=== PATIENT | male | born 1980 ===

== ENCOUNTER → 2017-02-15 | Day surgery (SDC) | payer OTHER ==
[~2017-02-15] VITALS: Ht 175.3 cm; Wt 104.3 kg
[~2017-02-15] MED LIST: GABAPENTIN600 MG ORAL; LR 1000ml 1,000 ML IVLG SCH; LR 1000ml ONE; NORCO 10-325 T1 EACH ORAL; Propofol 10mg/ml 20ml IV ONE
--- NOTE | 2017-02-15 08:51 | Short Stay Surgery H&P ---
History of Present Illness History of Present Illness Chief Complaint Abdominal pains and GERDS, R/O Peptic ulcer. HPI Landry Ortiz is a 36 year old male who was admitted on for Abdominal Pain/GERDs. Patient History Allergies: Coded Allergies: No Known Allergies (Unverified , 02/15/17) PAST MEDICAL HISTORY: Past Surgeries: Social History: Review of Systems Cardiovascular: Reports: no symptoms Respiratory: Reports: no symptoms Skeletal: Reports: no symptoms Gastrointestinal: Reports: gastro esophageal reflux disease Genitourinary: Reports: no symptoms Neurologic: Reports: no symptoms Endocrine: Reports: no symptoms Hematologic: Reports: no symptoms Physical Exam Skin: normal HENT: normal Heart: normal Lungs: normal Abdomen: abnormal Extremities: normal Genitourinary: normal Plan Plan of Care Upper GI endoscopy with biopsy. Preop Interventions None. Summary of Findings See the reports. Final Diagnosis: Attestation Are the patient's medical conditions optimized for surgery? Attestation Response: yes MARYANN SERRANO Feb 15, 2017 08:51
--- NOTE | 2017-02-15 08:52 | Pre-Procedure Note/Attestation ---
Pre-Procedure Note/Attestation Complete Prior to Procedure Planned Procedure: left Procedure Narrative: The endoscopic examination of the upper and the lower GI tract with biopsy. Indications for Procedure Pre-Operative Diagnosis: R/O Gastritis/ulcers. Attestation I attest that I discussed the nature of the procedure; its benefits; risks and complications; and alternatives (and the risks and benefits of such alternatives ), prior to the procedure, with the patient (or the patient's legal mill representative). I attest that, if there was a reasonable possibility of needing a blood transfusion, the patient (or the patient's legal mill representative) was given the [place] Department [employer] standardized written summary, pursuant to the Landry Johana Blood Safety Act ([place] Health and Safety Code # 1645, as amended). I attest that I re-evaluated the patient just prior to the surgery and that there has been no change in the patient's H&P, except as documented below: ZACHSAID Feb 15, 2017 08:52
[2017-02-15 08:56] VITALS: BP 114/72
--- NOTE | 2017-02-15 09:09 | Endoscopy Procedure Note ---
Endoscopy Procedure Note Procedures Performed: EGD - Small sliding Hiatal Hernia. Mild duodenitis, biopsied. Mild edema of pyloric channel (12 oc;ock), biopsied . Biopsy done per random from gsatric body. Specimen: yes Pt Tolerated Procedure Well: Yes Estimated Blood Loss: none Anesthesiologist: Dr. Perkins Anesthesia: moderate sedation Medication Given: see anesthesia record Implant(s) used?: No 50 yrs or older w/o bx or poly: Not Applicable 10yrs. F/U not recommended: Not Applicable If not recommended, why?: Med reason:<3 yrs.: System Reason:<3 yrs.: MARYANN SERRANO Feb 15, 2017 09:09
--- NOTE | 2017-02-15 09:10 | Anethesia Preoperative Eval ---
Anesthesia Pre-op PMH/ROS General Date of Evaluation: Feb 15, 2017 Time of Evaluation: 08:57 Anesthesiologist: mira ASA Score: ASA 2 Mallampati Score Class I : Soft palate, uvula, fauces, pillars visible Class II: Soft palate, uvula, fauces visible Class III: Soft palate, base of uvula visible Class IV: Only hard plate visible Mallampati Classification: Class II Surgeon: adarsh Diagnosis: GERD abdominal pain Surgical Procedure: egd Anesthesia History: none Allergies: Coded Allergies: No Known Allergies (Unverified , 02/15/17) Past Medical History Gastrointestinal/Genitourinary: Reports: GERD Neurologic/Psychiatric: Reports: other - migraine Musculoskeletal/Integumentary: Reports: DDD - lumbar Anesthesia Pre-op Phys. Exam Physician Exam Last Vital Signs Date Time Temp Pulse Resp B/P Pulse Ox O2 Delivery O2 Flow Rate FiO2 02/15/17 08:56 97.5 75 20 114/72 95 Room Air Airway Exam Mallampati Score: Class II Teeth: intact Anesthesia Pre-op A/P Risk Assessment & Plan Plan: propofol Status Change Before Surgery: Mayo King MD Feb 15, 2017 09:10
--- NOTE | 2017-02-15 09:10 | Discharge Instructions ---
Discharge Instructions Discharge Instructions Follow up with: See the doctor after two weeks in the ofice. For Congestive Heart Failure Reminder Report to your physician any weight gain of 5 pounds or more in one week. MARYANN SERRANO Feb 15, 2017 09:10
--- NOTE | 2017-02-15 09:13 | Immediate Post-Op Evaluation ---
Immediate Post-Op Evalulation Immediate Post-Op Evalulation Date of Evaluation: Feb 15, 2017 Time of Evaluation: 09:32 IV Fluids: 300 Blood Pressure Systolic: 110 Blood Pressure Diastolic: 75 Pulse Rate: 78 Respiratory Rate: 20 O2 Sat by Pulse Oximetry: 98 Temperature (Fahrenheit): 97.4 Pain Score (1-10): 0 Nausea: No Vomiting: No Complications none Patient Status: awake, patent, none Hydration Status: adequate Mayo Perkins MD Feb 15, 2017 09:13
--- NOTE | 2017-02-15 09:14 | 48 Hour Post Anesthesia Eval ---
Post Anesthesia Evaluation Date of Evaluation: Feb 15, 2017 Time of Evaluation: 10:00 Blood Pressure Systolic: 113 0: 74 Pulse Rate: 78 Respiratory Rate: 20 Temperature (Fahrenheit): 97.6 O2 Sat by Pulse Oximetry: 98 Airway: patent Nausea: No Vomiting: No Pain Intensity: 0 Hydration Status: adequate Cardiopulmonary Status: stable Mental Status/LOC: patient returned to baseline Follow-up Care/Observations: n/a Post-Anesthesia Complications: tolerated well Follow-up care needed: ready to discharge Mayo Perkins MD Feb 15, 2017 09:14
[2017-02-15 09:27] VITALS: BP 110/63
[2017-02-15 09:30] VITALS: BP 108/63
[2017-02-15 09:35] VITALS: BP 113/74
[2017-02-15 10:00] VITALS: BP 113/74
[2017-02-15 10:34] VITALS: BP 113/74
--- NOTE | 2017-02-15 17:28 | Operative Note - Dictated ---
DATE OF OPERATION: 02/15/2017 PROCEDURE: Esophagogastroduodenoscopy with biopsy. REFERRING PHYSICIAN: This patient was referred by Dr. Emilio Petersen. PREOPERATIVE DIAGNOSIS: Abdominal pain and history of gastroesophageal reflux disease. POSTOPERATIVE DIAGNOSES: 1. Small sliding hiatal hernia. 2. Evidence of mild edema of pyloric channel at 2 o' clock. 3. Mild duodenitis. Biopsy was taken from pyloric channel, duodenum and gastric body per random. MEDICATION USED: Per Dr. Perkins, anesthesiologist. INSTRUMENT: GIF Olympus upper gastrointestinal video endoscope. DESCRIPTION OF PROCEDURE: The patient after arriving endoscopy unit, was told about risks and benefits of the procedure, which he accepted and signed the informed consent. He was then put on the left lateral decubitus position. After adequate IV sedation, the scope was gently passed through the cricopharyngeal area, was lodged into the upper esophagus, gradually advanced towards gastroesophageal junction. The entire length of the esophagus looked normal and no evidence of varices, inflammatory process, ulceration, stricture, etc. was found. At the GE junction it was noted there was a small sliding hiatal hernia, no great significance, however, there was no any evidence of Vines's. The scope was guided into normal looking stomach. Gastric cavity was distended with insufflation of air in the areas of the fundus and the body and antrum were examined in an film splicer fashion. These areas also remained to be within normal limits without any pathological findings such as ulcers, inflammatory process, tumors etc, however, upon reaching towards the pyloric channel, there was seen evidence of mild edema and erythema of the pyloric channel at 12 o'clock, but there was no ulcers or bleeding. One random biopsy from this edematous area was obtained. Subsequently, the scope was passed into the duodenum, which revealed evidence of mild inflammatory process over the anterior wall of the duodenum, which was biopsied, however, there was no ulcers or strictures or bleeding etc. Second portion of duodenum however looked completely normal. Finally, after obtaining a random biopsy from gastric body over the greater curvature posterior wall, procedure was terminated. The patient tolerated the procedure well and left the endoscopy room in good condition. Said Javi Mitchell DR: ARIS JOB#: [id number] CC:
--- NOTE | 2017-02-15 17:38 | Pre-op HX & Phy Repo 2 SIG ---
DATE OF ADMISSION: 02/15/2017 REFERRING PHYSICIAN: Emilio Petersen M.D., he is not on the staff. HISTORY OF PRESENT ILLNESS: The applicant is a 36-year-old gentleman who is being seen prior to undergoing the procedure of upper GI endoscopy, for which he has been scheduled to be seen for evaluation of his gastrointestinal symptoms that he has been complaining subsequently as work injury. The patient basically is complaining of pain located over the upper part of the abdomen, which is appearing on a daily basis particularly as he is feeling these symptoms at nighttime and in the evening with severe degree of intensity. He reports that subsequent to his injuries approximately two years ago, he started to experience these symptoms presenting with significant heartburn as he was started on multiple medications including strong analgesics and nonsteroidal anti-inflammatory agents. He reports that after eating food, these pains are more extensive. He denies, however, having had any history of GI bleeding such as hematemesis, melena, or change in bowel movements such as constipation or major diarrheas or weight loss, etc. He also complained of excessive gas and bloating. The applicant denies dysphagia. As I mentioned, he had been receiving multiple medications including nonsteroidal anti-inflammatory agents such as naproxen prescribed by different consultants for the treatment of his bodily injury that he had suffered. 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 As such, he started to experience injuries over the lower back and cervical area, over his left groin, and the pain was radiating also to his left thigh. As such, he had injuries, which required medications as I mentioned earlier. PAST MEDICAL HISTORY: The applicant denies any major medical problem in the past including hypertension or any prior GI condition such as peptic ulcer disease, colitis, etc. FAMILY HISTORY: None significant. ALLERGIES: None significant. PRESENT MEDICATIONS: None significant except for occasional nonsteroidal anti-inflammatory agents. HABITS: He does not smoke or drinks. REVIEW OF SYSTEMS: Basically history of present illness. PHYSICAL EXAMINATION: GENERAL: Alert, oriented, very pleasant gentleman, who does not seem to be in acute distress. VITAL SIGNS: All stable. HEENT: Normocephalic. Pupils are equal in size and reactive to light and accommodation. No visible jaundice. Buccal cavity, tongue midline and well hydrated. NECK: Supple. No JVD, thyromegaly, or adenopathy. CHEST: Clear to auscultation and percussion. No rales or rhonchi. HEART: S1 and S2 normal. Regular rhythm. No gallops or murmur. ABDOMEN: Soft, but there are areas of tenderness over upper part of the abdomen, particularly in the epigastric area. There is no organomegaly. No masses or tumors were found. Bowel sounds are present. EXTREMITIES: Unremarkable. PRELIMINARY IMPRESSION: 1. Epigastric pain of uncertain etiology, rule out gastroesophageal acid reflux, aggravated by nonsteroidal anti-inflammatory agents, rule out underlying peptic ulcer disease, NSAID gastroenterology, erosive gastritis, etc. 2. History of bodily injury, work related. RECOMMENDATION: The applicant seems to be stable at this time to undergo the procedure of upper GI endoscopy, for which he has been scheduled. He understands the risks and benefits, and signed the consent. Said Javi Mitchell DR: ABDON JOB#: [id number] CC:
== END | disposition home or self-care (01) ==
LOC: GAS 07:46
DX: K29.80 Duodenitis without bleeding (principal); K29.50 Unspecified chronic gastritis without bleeding; K44.9 Diaphragmatic hernia without obstruction or gangrene; G43.909 Migraine, unspecified, not intractable, without status migrainosus; M51.36 Other intervertebral disc degeneration, lumbar region
CPT/HCPCS: 43239; J2704; J7120; 94003; 94150